=== PATIENT | male | born 1980 | race Caucasian/White ===

== ENCOUNTER → 2017-01-25 | Outpatient (CLI) | payer OTHER ==
--- NOTE | ~2017-01-25 | CR184 ---
[facility] A Service of [facility] & [facility] RADIOLOGY TEXT RESULTS PATIENT: MELLISSA RAYMUNDO LOCATION: [facility] : [birth year] UNIT #: [id number] AGE: [address]: Leela Scott MD SEX: M ORDER DR: [id number] [facility] [address] [place], [place] [address] [id number] O MR#: [id number] Acc #: [id number] NAME: MELLISSA RAYMUNDO : 1980 SEX: M STUDY DATE/TIME: 01/25/2017 16:33 UNIT: [facility] ROOM: STUDY DESCRIPTION: CR Lumbar Spine Min 4 Views Attending Physician: Leela Scott M.D. Referring Physician: Leela Scott M.D. Ordering Physician: Leela Scott M.D. Primary Care Physician: Leela Scott M.D. MEDICAL IMAGING REPORT This report is preliminary unless electronic signature is present EXAM Lumbar spine series HISTORY Low back pain radiating to the left groin after an acute back injury May 2016. TECHNIQUE 5 views lumbar spine were obtained including oblique views. FINDINGS Alignment is satisfactory. Disc space heights are preserved. Posterior facets are intact and no pars defects are noted. The AP diameter of the lower lumbar spinal canal appears to be narrow on a congenital basis from short pedicles. 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 Otherwise, negative. Dictated by... Ag Crump M.D. THIS IS AN ELECTRONICALLY VERIFIED REPORT Ag Crump M.D. at 01/27/2017 10:56 AM DANILOF/kash TD: 01/27/2017 08:18 JOB #: [id number] MEDICAL IMAGING REPORT Page 1 of 1 COPY
== END | disposition home or self-care (01) ==
LOC: CRAD 16:21
DX: M54.5 Low back pain (principal); G89.29 Other chronic pain; Q76.49 Other congenital malformations of spine, not associated with scoliosis
CPT/HCPCS: 72110